=== PATIENT | male | born 1980 | race Caucasian/White ===

== ENCOUNTER 2016-11-26 14:00 | Emergency (ER) | payer MEDICAID, OTHER ==
[~2016-11-26] VITALS: Ht 157.5 cm; Wt 82.5 kg
[2016-11-26 14:08] VITALS: Ht 157.5 cm; Wt 82.5 kg
[2016-11-26] MEDS ORDERED: KETOROLAC 30 MG INJ IM STA (15:03)
--- NOTE | 2016-11-26 15:15 | ERD ---
ER Documentation Chief Complaint Date/Time DATE: 11/26/16 TIME: 15:12 Chief Complaint right knee pain HPI Patient is a 36-year-old male who presents to the emergency department with right upper leg pain and knee pain status post a fall injury while playing soccer 2 days ago. Patient states that he was running when he slipped on the grass and fell onto his right knee. Patient states that initially the pain was minimal however the pain has continued and now is severe. Patient states his current pain level is 10 out of 10. Patient is he is unable to bear weight to his right extremity. Patient states the pain originates in his right knee and radiates up into his right hip. Patient denies any previous injuries to the affected extremity. Patient denies taking any pain medication for symptoms. Patient denies any numbness, tingling, fevers, chills, back pain or loss of consciousness. ROS All systems reviewed and are negative except as per history of present illness. Medications Home Meds Active Scripts Hydrocodone/Acetaminophen ([place] 5-325 Tablet) 1 Each Tablet, 1 TAB PO Q6H Y for PAIN, #7 TAB Prov:MARILYN GU PA-C 11/26/16 Ibuprofen* (Motrin*) 600 Mg Tab, 600 MG PO Q6, #30 TAB Prov:AMRILYN GU PA-C 11/26/16 Allergies Allergies: Coded Allergies: No Known Allergy (Unverified , 11/26/16) PMhx/Soc Medical and Surgical Hx: pt denies Medical Hx, pt denies Surgical Hx Hx Alcohol Use: No Hx Substance Use: No Hx Tobacco Use: No FmHx Family History: No diabetes Physical Exam Vitals Vital Signs Date Time Temp Pulse Resp B/P Pulse Ox O2 Delivery O2 Flow Rate FiO2 11/26/16 14:08 98.1 73 18 118/73 99 Physical Exam GENERAL: Well-developed, well-nourished male. Appears in no acute distress. Speaking in full sentences HEAD: Normocephalic, atraumatic. EYES: Pupils are equally reactive bilaterally. EOMs grossly intact. No conjunctival erythema. ENT: Moist mucous membranes. No uvula deviation. No kissing tonsils. NECK: Supple. No meningismus. Normal range of motion of the neck. LUNG: Clear to auscultation bilaterally. No rhonchi, wheezing, rales or coarse breath sounds. HEART: Regular rate and rhythm. No murmurs, rubs or gallops. BACK: No midline tenderness. EXTREMITIES: Equal pulses bilaterally. No peripheral clubbing, cyanosis or edema. No unilateral leg swelling. NEUROLOGIC: Alert and oriented. Moving all four extremities without any difficulty. Normal speech. Steady gait. SKIN: Normal color. Warm and dry. No rashes or lesions. RIGHT HIP: No obvious deformity. Tender to palpation of the anterior hip. No hip instability. RIGHT KNEE: No obvious deformity, erythema, ecchymosis or swelling. Skin intact. Full ROM of the knee, ankle and all toes. No crepitus. Non-tender to palpation of the foot, ankle, tib-fib. Tender to palpation of the anterior knee and mid femur. +Joint line tenderness. Sensation intact to light touch. Neurovascularly intact. (Able to plantarflex, dorsiflex, colleen foot, invert foot , raise big toe.) 2+ DP and DT pulses. Results 24 hrs Current Medications Medications (Trade) Dose Ordered Sig/Pham Route PRN Reason Start Time Stop Time Status Last Admin Dose Admin Ketorolac Tromethamine (Toradol) 30 mg ONCE STAT IM 11/26/16 15:03 11/26/16 15:04 DC 11/26/16 15:20 Procedures/MDM ED COURSE: The patient was stable throughout ED course. I kept the patient and/or family informed of laboratory and diagnostic imaging results throughout the ED course. DIAGNOSTIC IMAGING: Read by radiologist. Patient: ROSALBA PEREZ : 1980 Age: 36 Sex: M MR #: [id number] [facility] #: [id number] DOS: 11/26/16 1617 Ordering MD: MARILYN GU PA-C Location: [facility] Room/Bed: PROCEDURE: Right knee radiographs. CLINICAL INDICATION: Right knee pain. TECHNIQUE: Three views. Weight bearing. Frontal, lateral, and patellar view. COMPARISON: No prior studies are available for comparison. FINDINGS: There is no fracture or dislocation. There may be a knee joint effusion. The articular surfaces are intact. There is no lytic or blastic lesion. There is no radiopaque foreign body. IMPRESSION: 1. Possible knee joint effusion. 2. Otherwise unremarkable images of the right knee. RPTAT: QQ .Vega Marin MD, Date Time Electronically viewed and signed by .Vega Marin MD, on 11/26/2016 17:16 .R/ CC: MARILYN GU PA-C DIAGNOSTIC IMAGING REPORT Patient: ROSALBA PEREZ : 1980 Age: 36 Sex: M MR #: [id number] DOS: 11/26/16 1459 Ordering MD: MARILYN GU PA-C Location: [facility] Room/Bed: PROCEDURE: XR Right Femur CLINICAL INDICATION: Status post fall, thigh, knee pain TECHNIQUE: AP and lateral radiographs were submitted. COMPARISON: None FINDINGS: Osseous structures: appear well mineralized and intact with no fracture or osseous destruction evident. Joint spaces: are well maintained with no significant erosion or spurring evident. There is a moderate joint effusion in the suprapatellar bursa. Soft tissues: appear unremarkable. IMPRESSION: Moderate suprapatellar joint effusion. Physician Cornel Date Time Electronically viewed and signed by Physician Cornel on 11/26/2016 16:05 RH/ CC: MARILYN GU PA-C PROCEDURES: SPLINT APPLICATION: The patient was verbally consented at bedside prior to splint application. Patient was explained the risks, benefits and alternatives to this procedure. The patient was neurovascularly intact prior to and status post application of the splint. The patient tolerated the procedure well with no complications. Splint type: knee immobilizer Extremity: R knee Indication: joint effusion, unable to rule out any ligament or tendon injuries MEDICATIONS GIVEN: Toradol IM Patient tolerated medication well with no adverse reactions. Patient reported improvement in pain. MEDICAL DECISION MAKING: This is a 36 year old male who presents with right leg pain s/p fall injury while playing soccer. Vital signs were reviewed. Patient was afebrile. Right femur xrays showed Moderate suprapatellar joint effusion. Given these findings , the patient;s presentation is most consistent with knee pain and joint effusion I have a much lower clinical concern for femur fracture, patella fracture, tibial plateau fracture, septic joint, gout, popliteal cyst, prepatellar bursitis, patellofemoral syndrome, osteoarthritis, osteomyelitis, DVT or compartment syndrome. At this time, unable to rule out any meniscus and knee ligament injuries. PRESCRIPTIONS: Ibuprofen, [place] DISCHARGE: At this time, patient is stable for discharge and outpatient management. Patient provided with a copy of all imaging studies obtained today. Patient is to remain nonweightbearing to the affected extremity. Patient should ambulate only with crutches. Patient should follow-up with an geoscience specialist in the next 1-2 days for further management of his injuries. I have instructed the patient to follow-up with his/her primary care physician in 1-2 days. I have instructed the patient to promptly return to the ER for any new or worsening symptoms including increased pain, swelling, redness, warmth or fever. The patient and/or family expressed understanding of and agreement with this plan. All questions were answered. Home care instructions were provided. Departure Diagnosis: Primary Impression: Knee pain Laterality: right Chronicity: acute Qualified Code: M25.561 - Acute pain of right knee Additional Impression: Knee joint effusion Laterality: right Qualified Code: M25.461 - Effusion of right knee Condition: Stable Patient Instructions: Knee Pain, Uncertain Cause Referrals: [facility] YOU HAVE RECEIVED A MEDICAL SCREENING EXAM AND THE RESULTS INDICATE THAT YOU DO NOT HAVE A CONDITION THAT REQUIRES URGENT TREATMENT IN THE EMERGENCY DEPARTMENT. FURTHER EVALUATION AND TREATMENT OF YOUR CONDITION CAN WAIT UNTIL YOU ARE SEEN IN YOUR DOCTORS OFFICE WITHIN THE NEXT 1-2 DAYS. IT IS YOUR RESPONSIBILITY TO MAKE AN APPOINTMENT FOR FOLOW-UP CARE. IF YOU HAVE A PRIMARY DOCTOR --you should call your primary doctor and schedule an appointment IF YOU DO NOT HAVE A PRIMARY DOCTOR YOU CAN CALL OUR PHYSICIAN REFERRAL HOTLINE AT IF YOU CAN NOT AFFORD TO SEE A PHYSICIAN YOU CAN CHOSE FROM THE FOLLOWING [facility] [address] [facility]. [facility] [address] [facility] [address] [facility] [address] [facility] [address] [facility]. [facility]. [address] [facility]. [facility] YOU HAVE RECEIVED A MEDICAL SCREENING EXAM AND THE RESULTS INDICATE THAT YOU DO NOT HAVE A CONDITION THAT REQUIRES URGENT TREATMENT IN THE EMERGENCY DEPARTMENT. FURTHER EVALUATION AND TREATMENT OF YOUR CONDITION CAN WAIT UNTIL YOU ARE SEEN IN YOUR DOCTORS OFFICE WITHIN THE NEXT 1-2 DAYS. IT IS YOUR RESPONSIBILITY TO MAKE AN APPOINTMENT FOR FOLOW-UP CARE. IF YOU HAVE A PRIMARY DOCTOR --you should call your primary doctor and schedule and appointment IF YOU DO NOT HAVE A PRIMARY DOCTOR YOU CAN CALL OUR PHYSICIAN REFERRAL HOTLINE AT . IF YOU CAN NOT AFFORD TO SEE A PHYSICIAN YOU CAN CHOSE FROM THE FOLLOWING [facility] INSTITUTIONS: [facility] [address] [place] [address] [facility] [address] [place] [address] [facility] [address] [place] [address] [facility] Hours: Mon-Fri 9:00 AM - 5:00 PM Additional Instructions: Llame al doctor TOMMY y murphy julia JIMMY PARA DENTRO DE 1-2 BENAVIDES.Dgale a la secretaria que nosotros le instruimos hacer esta jimmy.Avise o llame si jeong condicin se empeora antes de la jimmy. Regresa aqui si peor o no mejor. Necesita kenny un doctor de orthopedicos. Patient will need to follow-up with an geoscience specialist. Unable to rule out any ligament or tendon injuries at this time. Patient should remain in the immobilizer until seen by an geoscience specialist. She should remain nonweightbearing to the affected extremity. Take pain medication as needed. MARILYN GU PA-C Nov 26, 2016 15:15
--- NOTE | 2016-11-26 16:05 | RADRPT ---
PROCEDURE: XR Right Femur CLINICAL INDICATION: Status post fall, thigh, knee pain TECHNIQUE: AP and lateral radiographs were submitted. COMPARISON: None FINDINGS: Osseous structures: appear well mineralized and intact with no fracture or osseous destruction evid ent. Joint spaces: are well maintained with no significant erosion or spurring evident. There is a mode rate joint effusion in the suprapatellar bursa. Soft tissues: appear unremarkable. IMPRESSION: Moderate suprapatellar joint effusion. Physician Cornel Date Time Electronically viewed and signed by Valarie Tillman Physician on 11/26/2016 16:05 /
--- NOTE | 2016-11-26 17:16 | RADRPT ---
PROCEDURE: Right knee radiographs. CLINICAL INDICATION: Right knee pain. TECHNIQUE: Three views. Weight bearing. Frontal, lateral, and patellar view. COMPARISON: No prior studies are available for comparison. FINDINGS: There is no fracture or dislocation. There may be a knee joint effusion. The articular surfaces are intact. There is no lytic or blastic lesion. There is no radiopaque foreign body. IMPRESSION: 1. Possible knee joint effusion. 2. Otherwise unremarkable images of the right knee. RPTAT: QQ .Vega Marin MD, MD Date Time Electronically viewed and signed by .Vega Marin MD, MD on 11/26/2016 17:16 .R/
[2016-11-26] MEDS ORDERED: HYDR-906 PO (17:40)
[2016-11-26] MEDS ORDERED: IBUP-1542 PO (17:40)
== END 2016-11-26 18:21 | disposition home or self-care (01) ==
LOC: FTE 14:00
DX: S89.91XA Unspecified injury of right lower leg, initial encounter (principal); M25.461 Effusion, right knee; W01.0XXA Fall on same level from slipping, tripping and stumbling without subsequent striking against object, initial encounter; Y92.9 Unspecified place or not applicable
CPT/HCPCS: 29105; 73550; 73562; 96372; J1885; Z7502; Z7610